=== PATIENT | female | born 1985 | race Caucasian/White ===

== ENCOUNTER → 2017-11-22 | Outpatient (CLI) | payer BC ==
--- NOTE | 2017-11-22 15:01 | MM ---
Reason for exam: clinical finding. History: Took hormonal contraceptives beginning at age 16. Physical Findings: Nurse Summary: 1cm nodule in the left rbeast at 6 o'clock (nurse myranda). [facility] Diagnostic Mammo w CAD MADELEINE Bilateral CC and MLO view(s) were taken. The breast tissue is heterogeneously dense. This may lower the sensitivity of mammography. There are few, tiny, benign appearing round calcifications in the right breast. There is no discrete abnormality. These results were verbally communicated with the patient and result sheet given to the patient on 11/22/17. ASSESSMENT: Incomplete: need additional imaging evaluation, BI-RAD 0 RECOMMENDATION: Ultrasound of the left breast. (palpable by patient)
--- NOTE | 2017-11-22 15:04 | USB ---
Reason for exam: additional evaluation requested from abnormal screening. History: Took hormonal contraceptives beginning at age 16. US Breast LT Left complete breast ultrasound includes all four quadrants, the retroareolar region and axilla. Finding demonstrates a 0.7 x 0.2 x 0.3cm vague, irregular, mixed lesion at 4 o'clock at skin surface and a 0.6 x 0.3 x 0.8cm oval, mixed lesion at 6 o'clock. These results were verbally communicated with the patient and result sheet given to the patient on 11/22/17. ASSESSMENT: Probably benign, BI-RAD 3 RECOMMENDATION: Ultrasound of the left breast in 2-3 months. MTDD
== END | disposition home or self-care (01) ==
LOC: RADMAMWWP 13:39
PROVIDERS: ATTEND Family Medicine
DX: N63.42 Unspecified lump in left breast, subareolar (principal)
CPT/HCPCS: 77066

== ENCOUNTER → 2018-02-15 | Outpatient (CLI) | payer BC ==
--- NOTE | 2018-02-19 11:44 | USB ---
Reason for exam: clinical finding. History: Took hormonal contraceptives beginning at age 16. Physical Findings: Nurse Summary: Left breast palpable at 6 o'clock 0.5 x 0.5 cm , movable, non-tender. US Breast LT Left complete breast ultrasound includes all four quadrants, the retroareolar region and axilla. Finding demonstrates a 0.4 x 0.4 x 0.4 cm oval solid lesion at the skin line. These results were verbally communicated with the patient and result sheet given to the patient on 02/15/18. ASSESSMENT: Probably benign, BI-RAD 3 RECOMMENDATION: Ultrasound of the left breast in 6 months.
== END | disposition home or self-care (01) ==
LOC: RADUSWWP 15:31
PROVIDERS: ATTEND Family Medicine
DX: N63.42 Unspecified lump in left breast, subareolar (principal)

== ENCOUNTER → 2018-09-26 | Outpatient (CLI) | payer BC ==
--- NOTE | 2018-09-26 13:19 | CT ---
EXAMINATION TYPE: CT abdomen wo/w con DATE OF EXAM: 09/26/2018 COMPARISON: CT scan 11/07/2013, outside MRI report of 08/21/2018. HISTORY: Liver Lesion CT DLP: 615.8 mGycm Automated exposure control for dose reduction was used. TECHNIQUE: Helical acquisition of images was performed from the lung bases through the top of iliac crest to include entire abdomen. CONTRAST: Performed with Oral Contrast and without and with IV Contrast, patient injected with 100 mL of Isovue 300. FINDINGS: LUNG BASES: No significant abnormality is appreciated. LIVER/GB: NO calcified gallstones. 1.8 cm lesion of decreased attenuation with enhancement rule out a nd fill-in on delayed images posterior segment right hepatic lobe at its periphery likely reflects a hemangioma . Biliary tree is of normal caliber. PANCREAS: No significant abnormality is seen. SPLEEN: No significant abnormality is seen. ADRENALS: No significant abnormality is seen. KIDNEYS: No significant abnormality is seen. BOWEL: Localized areas of wall thickening involving the right colon most likely related to incomplet e distention or peristalsis.. Duodenal diverticulum noted. LYMPH NODES: No significant abnormality is seen. OSSEOUS STRUCTURES: Chronic deformity lower right rib suggestive of remote trauma. OTHER: Small fat-containing periumbilical hernia. Aorta of normal caliber. No free fluid. IMPRESSION: 1. Stable hepatic hemangioma. 2. Localized areas of wall thickening involving the right colon most likely related to incomplete dis tention rather than mucosal lesion correlate clinically and with direct visualization as clinically w arranted.
== END | disposition home or self-care (01) ==
LOC: RADCTMAIN 10:43
PROVIDERS: ATTEND Family Medicine
DX: D18.03 Hemangioma of intra-abdominal structures (principal); K63.89 Other specified diseases of intestine
CPT/HCPCS: 74170; Q9967

== ENCOUNTER → 2018-10-17 | Outpatient (CLI) | payer BC ==
--- NOTE | 2018-10-17 11:43 | USB ---
Reason for exam: follow-up at short interval from prior study. History: Took hormonal contraceptives beginning at age 16. Physical Findings: Nurse Summary: left breast palpable 5:30, 0.5 x 0.5cm, movable (nurse ts). US Breast LT Left complete breast ultrasound includes all four quadrants, the retroareolar region and axilla. Finding demonstrates a 0.3 x 0.2 x 0.3cm solid vague lesion at skin line 5 o'clock. These results were verbally communicated with the patient and result sheet given to the patient on 10/17/18. ASSESSMENT: Probably benign, BI-RAD 3 RECOMMENDATION: Ultrasound of the left breast in 6 months. Manage patient on a clinical basis.
== END | disposition home or self-care (01) ==
LOC: RADUSWWP 10:22
PROVIDERS: ATTEND Family Medicine
DX: R92.8 Other abnormal and inconclusive findings on diagnostic imaging of breast (principal)

== ENCOUNTER 2019-05-12 06:00 | Inpatient (IN) | payer BC ==
--- NOTE | 2019-05-11 18:38 | P.HPOB ---
History of Present Illness H&P Date: 05/11/19 Chief Complaint: Postdates This is a 33 y.o. female 2, para 1, with an estimated date of confinement of 05/01/2019, estimated gestational age of 41-5/7 weeks, who presents for induction of labor due to post-dates . She admits to good movement and has irregular contractions. has been uncomplicated. labs: GC/Chlamydia/Trich-neg Hepatitis B surface antigen-neg RPR-NR Rubella-immune Blood type-O+ Antibody screen-neg Hemoglobin-12.2 Random glucose-87 Quad-normal US- 2 EIF L. & R. ventricle-resolved 1 hr. GTT-108 GBS-neg OB Hx: . Hx 1 vaginal delivery. 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 Review of Systems Constitutional: Denies chills, Denies fever Eyes: denies blurred vision, denies pain Ears, nose, mouth and throat: Denies headache, Denies sore throat Cardiovascular: Denies chest pain, Denies shortness of breath Respiratory: Denies cough Gastrointestinal: Reports abdominal pain (irreg. ctxs) Genitourinary: Reports pelvic pain, Reports Musculoskeletal: Reports low back pain Integumentary: Denies pruritus, Denies rash Neurological: Denies numbness, Denies weakness Psychiatric: Denies anxiety, Denies depression Past Medical History Past Medical History: GERD/Reflux Additional Past Medical History / Comment(s): History of arrhythmia History of Any Multi-Drug Resistant Organisms: None Reported Past Surgical History: Hernia Repair Additional Past Surgical History / Comment(s): Inguinal hernia repair on the left at age 4 Past Anesthesia/Blood Transfusion Reactions: No Reported Reaction Past Psychological History: No Psychological Hx Reported Smoking Status: Never smoker Past Alcohol Use History: None Reported Past Drug Use History: None Reported - Past Family History Father Family Medical History: Diabetes Mellitus, Hypertension Mother Family Medical History: Hypertension Medications and Allergies Home Medications Medication Instructions Recorded Confirmed Type Pnv,Calcium 72/Iron/Folic Acid 1 each PO 11/22/15 History [ Plus Tablet] Allergies Allergy/AdvReac Type Severity Reaction Status Date / Time No Known Allergies Allergy Verified 11/22/15 09:05 Exam Osteopathic Statement: *. No significant issues noted on an osteopathic structural exam other than those noted in the History and Physical/Consult. HEENT: within normal limits Heart: regular rate and rhythm Lungs: clear to auscultation bilaterally Abdomen: heart tones: 140's by doppler Cervix: 2 cm/60%/-2 Extremities: neg. Main's Assessment and Plan (1) Post-term , 40-42 weeks of gestation Status: Acute Code(s): O48.0 - POST-TERM SNOMED Code(s): 99146518591658 Plan: Admit for induction of labor. Expectant management. Epidural anesthesia if desired.
[2019-05-12] MEDS ORDERED: METHYLERGONOVINE 0.2 MG/ML 1 ML AMP IM PRN (06:24)
[2019-05-12] MEDS ORDERED: LIDOCAINE 0.5% (PF) 5 MG/ML (50 ML SDV) SQ PRN (06:24)
[2019-05-12] MEDS ORDERED: TERBUTALINE 1 MG/ML VIAL SQ PRN (06:24)
[2019-05-12] MEDS ORDERED: OXYTOCIN 10 UNIT/ML 1 ML VIAL IM PRN (06:24)
[2019-05-12] MEDS ORDERED: OXYTOCIN 30 UNITS/500 ML NS 30 UNIT in SALINE 1 500ML.BAG IV SCH (06:24)
[2019-05-12] MEDS ORDERED: LIDOCAINE 1% (10MG/ML) FOR IV START INTRADERMA PRN (06:24)
[2019-05-12] MEDS ORDERED: CARBOPROST TROMETHAMINE 250 MCG/ML 1 ML AMP IM PRN (06:24)
[2019-05-12] MEDS: LACTATED RINGERS 1,000 ML IV SCH ×4 (06:31→14:54)
[2019-05-12 06:44] LABS: Basophils % (A) 0 %; Eosinophils # (A) 0.1 k/uL (0-0.7); Eosinophils % (A) 1 %; HCT 38.2 % (34.0-46.0); HGB 12.6 gm/dL (11.4-16.0); Lymphocytes # (A) 2.3 k/uL (1.0-4.8); Lymphocytes % (A) 23 %; MCV 84.7 fL (80.0-100.0); Mean Platelet Volume 9.5; Monocytes # (A) 0.4 k/uL (0-1.0); Monocytes % (A) 4 %; Neutrophils # (A) 6.8 k/uL (1.3-7.7); Neutrophils % (A) 69 %; Platelet Count 140 k/uL (150-450); RBC 4.51 m/uL (3.80-5.40); RDW 14.3 % (11.5-15.5); WBC 9.8 k/uL (3.8-10.6)
[2019-05-12] MEDS ORDERED: ROPIVACAINE 100 MG, fentaNYL (PF) 200 MCG in SODIUM CHLORIDE 0.9% 76 ML EPIDURAL ONE (10:44)
[2019-05-12] MEDS ORDERED: OXYTOCIN 20 UNITS/1000 ML NS 1,000 ML IV SCH (17:38)
[2019-05-12] MEDS ORDERED: WITCH HAZEL 1 EACH MED..PAD TOPICAL PRN (17:38)
[2019-05-12] MEDS ORDERED: diphenhydrAMINE 50 MG CAP PO PRN (17:38)
[2019-05-12] MEDS ORDERED: LANOLIN CREAM 5 GM TUBE TOPICAL PRN (17:38)
[2019-05-12] MEDS ORDERED: ZOLPIDEM 5 MG TAB PO PRN (17:38)
[2019-05-12] MEDS ORDERED: SIMETHICONE 80 MG CHEWABLE PO PRN (17:38)
[2019-05-12] MEDS ORDERED: BENZOCAINE/MENTHOL SPRAY 1 GM/SPRAY AEROSOL TOPICAL PRN (17:38)
[2019-05-12] MEDS ORDERED: diphenhydrAMINE 50 MG/ML 1 ML VIAL IVP PRN ×2 (17:38)
[2019-05-12] MEDS ORDERED: HYDROCORTISONE 2.5% RECTAL CREAM 30 GM TUBE RECTAL PRN (17:38)
[2019-05-12] MEDS ORDERED: diphenhydrAMINE 25 MG CAP PO PRN (17:38)
--- NOTE | 2019-05-12 17:50 | P.PROBDLV ---
Vaginal Delivery Note - . Vaginal Delivery Note: The patient progressed to complete dilation after oxytocin induction of labor and artificial rupture membranes with clear fluid noted. Once reaching complete, she began pushing. Infant's head came to a crown. With one further push, the infant's head delivered across the perineum in a left occiput anterior lie followed by the anterior shoulder. Nose and mouth were bulb suctioned at the perineum. With one further push, the remainder the easily delivered and was placed on mother's abdomen. Cord was clamped and cut and infant was taken to warmer for evaluation. A viable male infant was noted with scores of 9 at 1 minute and 9 at 5 minutes and infant weight of 8 lbs. 4 oz. Placenta delivered shortly thereafter, intact, with a three-vessel cord. Uterus contracted fairly well after oxytocin was given and uterine massage was carried out. Inspection of the perineum revealed a second-degree perineal laceration. This area was anesthetized with 1% lidocaine and then sutured with 3-0 and 2-0 Vicryl suture in the usual multilayer fashion. Estimated blood loss is approximately 150 mL's. Both mother and are in stable condition.
[2019-05-12] MEDS: IBUPROFEN 600 MG TAB PO PRN (20:01)
[2019-05-12] MEDS: SENNOSIDES-DOCUSATE SODIUM 1 EACH TAB PO SCH (22:04)
[2019-05-13] MEDS: IBUPROFEN 600 MG TAB PO PRN ×3 (01:42→18:21)
[2019-05-13] MEDS: ACETAMINOPHEN TAB 325 MG TAB PO PRN ×3 (04:43→22:16)
[2019-05-13 07:04] LABS: Basophils % (A) 0 %; Eosinophils % (A) 0 %; Lymphocytes # (A) 2.1 k/uL (1.0-4.8); Lymphocytes % (A) 15 %; MCH 28.6 pg (25.0-35.0); MCHC 33.3 g/dL (31.0-37.0); MCV 85.8 fL (80.0-100.0); Monocytes # (A) 0.6 k/uL (0-1.0); Monocytes % (A) 5 %; Neutrophils # (A) 10.5 k/uL (1.3-7.7); Neutrophils % (A) 78 %; Platelet Count 103 k/uL (150-450); RBC 3.84 m/uL (3.80-5.40); RDW 14.3 % (11.5-15.5); WBC 13.5 k/uL (3.8-10.6)
[2019-05-13] MEDS: SENNOSIDES-DOCUSATE SODIUM 1 EACH TAB PO SCH ×2 (08:32→20:28)
--- NOTE | 2019-05-13 08:54 | P.DS ---
Providers Date of admission: 05/12/19 06:08 Expected date of discharge: 05/13/19 Attending physician: Kelley Falk Primary care physician: Stated None - Discharge Diagnosis(es) (1) Post-term , 40-42 weeks of gestation Current Visit: No Status: Acute Hospital Course: This is a 33-year-old female 2 para 1 with an estimated gestational age of 41-5/7 weeks, who presented for induction of labor. She underwent oxytocin induction of labor and delivered vaginally a viable male infant with scores of 9 at 1 minute and 9 at 5 minutes and weight of 8 lbs. 4 oz. on 05/12/2019. Her post course was uncomplicated. Lochia is decreasing. Pain is well-controlled. She is breast-feeding. Vital signs are stable. Abdomen soft with fundus firm and nontender. Extremities show negative Homans. Impression is status post vaginal delivery day #1. Plan is to discharge home today. Routine instructions are given. She is advised follow-up in the office in 6 weeks for check. She will be given a prescription for ibuprofen and a breast pump. She is advised to call the office if she has any further questions or concerns prior to her appointment time. Procedures: Oxytocin induction of labor Spontaneous vaginal delivery of a viable male infant on 05/12/2019 Patient Condition at Discharge: Stable Plan - Discharge Summary New Discharge Prescriptions: New Ibuprofen [Motrin] 600 mg PO Q6HR PRN #60 tab PRN Reason: Mild Pain Or Fever >= 100.5 Continue Pnv,Calcium 72/Iron/Folic Acid [ Plus Tablet] 1 each PO DAILY Discharge Medication List Pnv,Calcium 72/Iron/Folic Acid [ Plus Tablet] 1 each PO DAILY 11/22/15 [History] Ibuprofen [Motrin] 600 mg PO Q6HR PRN #60 tab 05/13/19 [Rx] Follow up Appointment(s)/Referral(s): Kelley Falk DO [Doctor of Osteopathic Medicine] - 6 Weeks Activity/Diet/Wound Care/Special Instructions: Instructions 1. Do not begin any exercise program for 3 weeks. 2. Do not resume sexual relations for 3 weeks or longer if uncomfortable. 3. You may take tub baths or showers at any time. 4. You may use tampons if desired after 3 weeks. 5. Keep the area of episiotomy (stitches) clean and dry. 6. If you are not nursing, wear a good fitting, supportive bra during the day and limit fluid intake for at least 1 week to prevent breast engorgement. 7. Call the office, [phone], within the next week to make appointment for your 6 week checkup if it has not already been made. 8. Report any of the following occurrences to the doctor promptly: a. Heavy, excessive bleeding b. Chills, fever c. Burning or frequency of urination d. Pain or redness and breasts if nursing e. Increasing pain or swelling in episiotomy (stitches). In addition to the above instructions, the following additional should be followed: 1. No heavy lifting or straining (exercising) until after 6 week checkup. 2. Keep abdominal incision clean and dry: You may wear a dressing if more comfortable. 3. Make office appointment for 10 days after going home or as instructed by her doctor. Discharge Disposition: HOME SELF-CARE
[2019-05-14 00:08] VITALS: RESP 16
[2019-05-14] MEDS: IBUPROFEN 600 MG TAB PO PRN ×2 (07:16→16:55)
[2019-05-14] MEDS: SENNOSIDES-DOCUSATE SODIUM 1 EACH TAB PO SCH (07:16)
[2019-05-14 17:11] VITALS: BP 131/65; PULSE 72; TEMP 98.1
== END 2019-05-14 18:35 | disposition home or self-care (01) | DRG 807 ==
LOC: 4FBP 06:08
PROVIDERS: ADMIT Obstetrics & Gynecology; ATTEND Obstetrics & Gynecology
PROC: 0KQM0ZZ Repair Perineum Muscle, Open Approach (ICD-10-PCS; principal; 2019-05-12)
PROC: 10E0XZZ Delivery of Products of Conception, External Approach (ICD-10-PCS; principal; 2019-05-12)
DX: O48.0 Post-term pregnancy (principal); Z37.0 Single live birth; O70.1 Second degree perineal laceration during delivery; Z82.49 Family history of ischemic heart disease and other diseases of the circulatory system; Z83.3 Family history of diabetes mellitus; Z3A.41 41 weeks gestation of pregnancy; K21.9 Gastro-esophageal reflux disease without esophagitis; Z98.890 Other specified postprocedural states
CPT/HCPCS: 85025; 86850; 86900; 86901; 88307

== ENCOUNTER → 2019-07-18 | Outpatient (CLI) | payer BC | END | disposition home or self-care (01) | LOC: LABWHC1 13:14 | PROVIDERS: ATTEND Obstetrics & Gynecology | DX: Z11.59 Encounter for screening for other viral diseases (principal) ==

== ENCOUNTER 2019-07-22 08:02 | Day surgery (SDC) | payer BC ==
[2019-07-21 13:40] VITALS: BMI 28.3
--- NOTE | 2019-07-21 19:03 | P.HPOB ---
History of Present Illness H&P Date: 07/21/19 Chief Complaint: Family planning This is a 33 y.o. female, 2, para 2, who presents for laparoscopic bilateral tubal ligation via fulgaration for family planning. She recently delivered her last child and wishes permanent sterilization. She is currently using progesterone-only control pills. OB Hx: . History of 2 vaginal deliveries. 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 Review of Systems Constitutional: Denies chills, Denies fever Eyes: denies blurred vision, denies pain Ears, nose, mouth and throat: Denies headache, Denies sore throat Cardiovascular: Denies chest pain, Denies shortness of breath Respiratory: Denies cough Gastrointestinal: Denies abdominal pain, Denies diarrhea, Denies nausea, Denies vomiting Menstruation: Reports amenorrhea on BC Musculoskeletal: Denies myalgias Integumentary: Denies pruritus, Denies rash Neurological: Denies numbness, Denies weakness Psychiatric: Denies anxiety, Denies depression Past Medical History Past Medical History: GERD/Reflux Additional Past Medical History / Comment(s): History of arrhythmia History of Any Multi-Drug Resistant Organisms: None Reported Past Surgical History: Hernia Repair Additional Past Surgical History / Comment(s): Inguinal hernia repair on the left at age 4 Past Anesthesia/Blood Transfusion Reactions: No Reported Reaction Past Psychological History: No Psychological Hx Reported Smoking Status: Never smoker Past Alcohol Use History: Occasional Past Drug Use History: None Reported - Past Family History Father Family Medical History: Diabetes Mellitus, Hypertension Mother Family Medical History: Hypertension Medications and Allergies Home Medications Medication Instructions Recorded Confirmed Type Pnv,Calcium 72/Iron/Folic Acid 1 each PO DAILY 11/22/15 07/21/19 History [ Plus Tablet] Ibuprofen [Motrin] 600 mg PO Q6HR PRN #60 tab 05/13/19 07/21/19 Rx Allergies Allergy/AdvReac Type Severity Reaction Status Date / Time shellfish derived [Shellfish] Allergy Severe Swelling Verified 07/22/19 08:22 Exam Osteopathic Statement: *. No significant issues noted on an osteopathic structural exam other than those noted in the History and Physical/Consult. Intake and Output 07/21/19 07/21/19 07/21/19 06:59 14:59 22:59 Other: Weight 70.307 kg HEENT: within normal limits Heart: regular rate and rhythm Lungs: clear to auscultation bilaterally Abdomen: soft, non-tender Pelvic: uterus anteverted, non-tender with no adnexal masses or tenderness noted Extremities: neg. Main's Assessment and Plan (1) Family planning Current Visit: No Status: Acute Code(s): Z30.09 - ENCOUNTER FOR OT GENERAL CNSL AND ADVICE ON CONTRACEPTION SNOMED Code(s): 590405312 Plan: Proceed with laparoscopic bilateral tubal ligation via fulgaration. I have discussed the risks, benefits, and alternative therapies for the above- mentioned procedure and for both sedation/anesthesia as well as necessary blood products administration, if indicated, as they pertain to this patient. The patient has indicated her understanding and acceptance of the risks and procedures discussed.
[~2019-07-22 08:02] MED LIST: DEXAMETHASONE SOD PHOSPHATE 10 MG/ML 1 ML VIAL IV ONE; HYDROmorphone 0.5 MG/0.5 ML SYRINGE IVP PRN; LACTATED RINGERS 1,000 ML IV SCH; LIDOCAINE 1% (10MG/ML) FOR IV START INTRADERMA PRN; MIDAZOLAM 2 MG/2 ML VIAL IV PRN; ONDANSETRON 4 MG/2 ML VIAL IVP ONE; Pre Op ABX Message 1 EACH MISC MISCELLANE ONE
[2019-07-22] MEDS ORDERED: fentaNYL (PF) 50 MCG/ML 2 ML AMP ONE (09:27)
[2019-07-22] MEDS ORDERED: GLYCOPYRROLATE 0.2 MG/ML 2 ML VIAL ONE (09:27)
[2019-07-22] MEDS ORDERED: ROCURONIUM BROMIDE 10 MG/ML 5 ML VIAL IV ONE (09:27)
[2019-07-22] MEDS ORDERED: PROPOFOL 10 MG/ML 20 ML VIAL IV ONE (09:27)
[2019-07-22] MEDS ORDERED: MIDAZOLAM 2 MG/2 ML VIAL ONE (09:27)
[2019-07-22] MEDS ORDERED: NEOSTIGMINE 1 MG/ML 10 ML VIAL ONE (09:27)
[2019-07-22] MEDS ORDERED: KETOROLAC 30 MG/ML 1 ML VIAL ONE (09:27)
[2019-07-22] MEDS ORDERED: LIDOCAINE 1% INJ 10MG/ML (20 ML MDV) ONE (09:27)
[2019-07-22] MEDS ORDERED: HYDROmorphone (PF) 1 MG/ML ONE (09:27)
[2019-07-22] MEDS ORDERED: BUPIVACAINE (PF) 0.25% 30 ML VIAL SQ ONE ×3 (09:28→09:50)
[2019-07-22] MEDS ORDERED: LACTATED RINGERS 1,000 ML IV ONE (10:04)
--- NOTE | 2019-07-22 10:10 | P.OP ---
Date of Procedure: 07/22/19 Preoperative Diagnosis: Family planning Postoperative Diagnosis: Same Procedure(s) Performed: Laparoscopic bilateral tubal ligation via fulguration Anesthesia: VICTOR HUGO Surgeon: Kelley Falk Pathology: none sent Condition: stable Disposition: same day Indications for Procedure: This is a 33 y.o. female, 2, para 2, who presents for laparoscopic bilateral tubal ligation via fulgaration for family planning. She recently delivered her last child and wishes permanent sterilization. She is currently using progesterone-only control pills. Operative Findings: Uterus is small, anteverted, sounded to 8 cm. Normal ovaries and tubes are noted. Description of Procedure: The patient is taken to the operating room where she is placed in the dorsal lithotomy position. She is prepped and draped in the normal sterile fashion. Examination is performed under anesthesia. Uterus is found to be in a anteverted position. No adnexal masses were palpated. Next a bivalve speculum was placed in the patient's vagina. A single-tooth tenaculum was used to grasp the anterior lip of the cervix. The uterus was sounded to 8 cm. The kroner uterine manipulator was then inserted through the cervix and the balloon was inflated. The single-tooth tenaculum is removed speculum was removed gloves were changed and attention was turned to the abdomen. A small stab incision was made with a scalpel in the infraumbilical fold. A towel clip was placed above the umbilicus for retraction. A 5 mm disposable bladeless trocar was then inserted into the peritoneal cavity under direct visualization. Once inside, pneumoperitoneum was achieved with CO2 gas. The insert was removed and the camera was placed. Intraperitoneal placement was confirmed. No bleeding was noted. Next the patient was placed in Trendelenburg position. A small stab incision was made suprapubically and a 5 mm disposable bladeless trocar was inserted into the peritoneal cavity under direct visualization. Once inside pelvic contents were inspected. Next a bipolar Kleppinger instrument was placed through the inferior trocar and the midportion of each tube was brought away from other structures and completely fulgurated on approximate 2-3 cm segment of each tube. Excellent hemostasis was noted. Pictures were taken. Pneumoperitoneum was released after the inferior trocar was removed under direct visualization. The upper trocar was then removed. The skin incisions were then closed with 4-0 Vicryl suture in a subcuticular fashion. Incisions were then injected with quarter percent Marcaine. Approximately 7 mL were used. Next the kroner uterine manipulator was removed. Minimal bleeding was noted. All sponge and needle counts are correct. The patient is then taken to recovery room in stable condition.
[2019-07-22 10:19] VITALS: TEMP 98
[2019-07-22 11:00] VITALS: RESP 18
[2019-07-22 11:55] VITALS: BP 117/62; PULSE 68
== END 2019-07-22 12:26 | disposition home or self-care (01) ==
LOC: OR 08:02
PROVIDERS: ATTEND Obstetrics & Gynecology
DX: Z30.2 Encounter for sterilization (principal); K21.9 Gastro-esophageal reflux disease without esophagitis; F17.200 Nicotine dependence, unspecified, uncomplicated; Z79.3 Long term (current) use of hormonal contraceptives; Z86.79 Personal history of other diseases of the circulatory system; Z98.890 Other specified postprocedural states; Z91.013 Allergy to seafood; Z83.3 Family history of diabetes mellitus; Z82.49 Family history of ischemic heart disease and other diseases of the circulatory system
CPT/HCPCS: 81025; 58670; J2250; J2710; J2405; J2001; J3010; J1885; J1170; J2704

== ENCOUNTER 2024-06-09 15:29 | Observation (INO) | payer BC, OTHER ==
--- NOTE | 2024-06-09 16:13 | ED ---
General Adult HPI - General Stated complaint: ABD Pain/ABN Labs Time Seen by Provider: 06/09/24 15:41 Source: patient, RN notes reviewed - History of Present Illness Initial comments: This is a 38-year-old female presenting to the emergency room with referral from urgent care for complaints of epigastric abdominal pain that has been intermittent over the past 4 to 5 days. States that this pain feels like a cramping sensation has been associated after she has been eating or laying down at night. Endorses associated nausea with no reported emesis. Denies previous surgical abdominal history. Denies diarrhea or constipation. - Related Data Home Medications Medication Instructions Recorded Confirmed No Known Home Medications 06/09/24 06/09/24 Allergies Allergy/AdvReac Type Severity Reaction Status Date / Time shellfish derived [Shellfish] Allergy Severe Swelling Verified 06/09/24 18:47 all over/Rash Review of Systems ROS Statement: Those systems with pertinent positive or pertinent negative responses have been documented in the HPI. ROS Other: All systems not noted in ROS Statement are negative. Past Medical History Past Medical History: GERD/Reflux Additional Past Medical History / Comment(s): History of arrhythmia History of Any Multi-Drug Resistant Organisms: None Reported Past Surgical History: Hernia Repair Additional Past Surgical History / Comment(s): Inguinal hernia repair on the left at age 4 Past Anesthesia/Blood Transfusion Reactions: No Reported Reaction Past Alcohol Use History: None Reported - Past Family History Father Family Medical History: Diabetes Mellitus, Hypertension Mother Family Medical History: Hypertension General Exam - General Exam Comments Initial Comments: Visual Physical Exam Vital signs reviewed General: Well-appearing, nontoxic, no acute distress. Head: Normocephalic, atraumatic Eyes: PERRLA, EOMI ENT: Airway patent Chest: Nonlabored breathing Skin: No visual rash, normal skin tone Neuro: Alert and oriented 3 Musculoskeletal: No gross abnormalities General appearance: alert, in no apparent distress Neck exam: Present: normal inspection. Absent: tenderness, meningismus, lymphadenopathy Respiratory exam: Present: normal lung sounds bilaterally. Absent: respiratory distress, wheezes, rales, rhonchi, stridor Cardiovascular Exam: Present: regular rate, normal rhythm, normal heart sounds. Absent: systolic murmur, diastolic murmur, rubs, gallop, clicks GI/Abdominal exam: Present: soft, tenderness (RUQ/epigastric), normal bowel so unds. Absent: distended, guarding, rebound, rigid Extremities exam: Present: normal inspection, full ROM, normal capillary refill. Absent: tenderness, pedal edema, joint swelling, calf tenderness Back exam: Present: normal inspection. Absent: CVA tenderness (R), CVA tenderness (L) Course Vital Signs 06/09/24 06/09/24 16:13 18:36 Temperature 97.9 F 98.0 F Pulse Rate 98 110 H Respiratory 18 20 Rate Blood Pressure 162/98 168/90 O2 Sat by Pulse 100 100 Oximetry Medical Decision Making - Medical Decision Making Was pt. sent in by a medical professional or institution (, PA, NUCLEAR PHYSICIAN, urgent care, hospital, or shelter...) When possible be specific @ -Patient was advised by urgent care to report to emergency department for further evaluation of epigastric abdominal pain and tachycardia. Did you speak to anyone other than the patient for history (EMS, parent, family, police, friend...)? What history was obtained from this source @ -No Did you review nursing and triage notes (agree or disagree)? Why? @ -I reviewed and agree with nursing and triage notes Were old charts reviewed (outside hosp., previous admission, EMS record, old EKG, old radiological studies, urgent care reports/EKG's, shelter records)? Report findings @ -No old charts were reviewed Differential Diagnosis (chest pain, altered mental status, abdominal pain women, abdominal pain men, vaginal bleeding, weakness, fever, dyspnea, syncope, h eadache, dizziness, GI bleed, back pain, seizure, CVA, palpatations, mental health, musculoskeletal)? @ -Differential Abdominal Pain Women: Appendicitis, Cholecystitis, diverticulosis, ischemic bowel, pancreatitis, hepatitis, UTI, gastroenteritis, AAA, incarcerated hernia, bowel obstruction, constipation, inflammatory bowel, hepatitis, peptic ulcer disease, splenic infarction, perforated viscus, vulvitis, ovarian torsion, PID, kidney stone, placenta abruption, this is not meant to be an all-inclusive list EKG interpreted by me (3pts min.). @ -Completed at 1640 sinus tachycardia with a ventricular rate of 103, AR interval 131, QRS 94, QTc 398. X-rays interpreted by me (1pt min.). @ -None done CT interpreted by me (1pt min.). @ -None done U/S interpreted by me (1pt. min.). @ -Ultrasound of the gallbladder reveals cholelithiasis and biliary sludge without evidence of acute cholecystitis, common bile duct is mildly dilated measuring up to 8 mm consider ERCP What testing was considered but not performed or refused? (CT, X-rays, U/S, labs)? Why? @ -None What meds were considered but not given or refused? Why? @ -None Did you discuss the management of the patient with other professionals (professionals i.e. , PA, NUCLEAR PHYSICIAN, lab, RT, psych nurse, bilingual social worker, patient financial services coordinator, teacher, marine safety officer, catalytic case operator)? Give summary @ -I spoke with on-call general surgeon, Dr. Garcia, who was agreed to admit the patient. However after discussion with the patient she has requested a different surgeon for evaluation. I spoke with Dr. Barrera, general surgeon was agreed with the patient with impending surgery for tomorrow and n.p.o. after midnight. Was smoking cessation discussed for >3mins.? @ -No Was critical care preformed (if so, how long)? @ -No Were there social determinants of health that impacted care today? How? (Homelessness, low income, unemployed, alcoholism, drug addiction, transportation, low edu. Level, literacy, decrease access to med. care, penitentiary, rehab)? @ -No Was there de-escalation of care discussed even if they declined (Discuss DNR or withdrawal of care, Hospice)? DNR status @ -No What co-morbidities impacted this encounter? (DM, HTN, Smoking, COPD, CAD, Cancer, CVA, ARF, Chemo, Hep., AIDS, mental health diagnosis, sleep apnea, morbid obesity)? @ -None Was patient admitted / discharged? Hospital course, mention meds given and route, prescriptions, significant lab abnormalities, going to OR and other pertinent info. @ -Admitted. 38-year-old female presents emergency department complaints of epigastric abdominal pain with referral from urgent care. Patient is mildly hypertensive on arrival with blood pressure 162/98. Pain is reproducible on examination. She is provided with dose of Toradol for pain relief. Laboratory testing reveals leukocytosis of 23.13 with left shift neutrophils of 20.43. CMP is unremarkable. Urinalysis no signs of infection, hCG is negative. Ultrasound imaging of the gallbladder reveals cholelithiasis and biliary sludge with mildly dilated common bile duct. I spoke with on-call general surgeon, Dr. Barrera, who was agreed to meet the patient with general medicine on consult and to initiate IV antibiotics. Case discussed with Dr. Christianson. Undiagnosed new problem with uncertain prognosis? @ -No Drug Therapy requiring intensive monitoring for toxicity (Heparin, Nitro, Insulin, Cardizem)? @ -No Were any procedures done? @ -No Diagnosis/symptom? @ -Cholecystitis Acute, or Chronic, or Acute on Chronic? @ -Acute Uncomplicated (without systemic symptoms) or Complicated (systemic symptoms)? @ -Complicated Side effects of treatment? @ -No Exacerbation, Progression, or Severe Exacerbation? @ -No Poses a threat to life or bodily function? How? (Chest pain, USA, SC, pneumonia, PE, COPD, DKA, ARF, appy, cholecystitis, CVA, Diverticulitis, Homicidal, Suici annalisa, threat to staff... and all critical care pts) @ -Yes, can lead to endorgan system dysfunction - Lab Data Result diagrams: 06/09/24 16:53 06/09/24 16:53 Lab Results 06/09/24 06/09/24 06/09/24 Range/Units 16:49 16:49 16:53 WBC 23.13 H (4.50-10.00) 10*3/uL RBC 5.34 H (4.10-5.20) 10*6/uL Hgb 13.1 (12.0-15.0) g/dL Hct 40.6 (37.2-46.3) % MCV 76.0 L (80.0-97.0) fL MCH 24.5 L (27.0-32.0) pg MCHC 32.3 (32.0-37.0) g/dL Plt Count 225 (140-440) 10*3/uL MPV 10.2 (9.5-12.2) fL Immature Gran % (Auto) 0.4 % Neutrophils % 88.3 % Lymphocytes % 7.0 % Monocytes % 3.8 % Eosinophils % 0.2 % Basophils % 0.3 % Immature Gran # 0.10 H (0.00-0.04) 10*3/uL Neutrophils # 20.43 H (1.80-7.70) 10*3/uL Lymphocytes # 1.62 (0.90-5.00) 10*3/uL Monocytes # 0.88 (0.20-1.00) 10*3/uL Eosinophils # 0.04 (0.04-0.35) 10*3/uL Basophils # 0.06 (0.00-0.10) 10*3/uL Sodium (137-145) mmol/L Potassium (3.5-5.1) mmol/L Chloride (98-107) mmol/L Carbon Dioxide (22-30) mmol/L Anion Gap mmol/L BUN (7-17) mg/dL Creatinine (0.52-1.04) mg/dL Est GFR (CKD-EPI)AfAm (>60 ml/min/1.73 sqM) Est GFR (CKD-EPI)NonAf (>60 ml/min/1.73 sqM) Glucose (74-99) mg/dL Calcium (8.4-10.2) mg/dL Total Bilirubin (0.2-1.3) mg/dL AST (14-36) U/L ALT (4-34) U/L Alkaline Phosphatase (38-126) U/L Total Protein (6.3-8.2) g/dL Albumin (3.5-5.0) g/dL Amylase (30-110) U/L Lipase (23-300) U/L Urine Color Yellow Urine Appearance Cloudy H (Clear) Urine pH 6.0 (5.0-8.0) Ur Specific [place] 1.027 (1.001-1.035) Urine Protein Negative (Negative) Urine Glucose (UA) Negative (Negative) Urine Ketones 1+ H (Negative) Urine Blood Negative (Negative) Urine Nitrite Negative (Negative) Urine Bilirubin Negative (Negative) Urine Urobilinogen <2.0 (<2.0) mg/dL Ur Leukocyte Esterase Negative (Negative) Urine RBC 1 (0-5) /hpf Urine WBC 2 (0-5) /hpf Ur Squamous Epith Cells 15 H (0-4) /hpf Urine Bacteria Rare H (None) /hpf Urine Mucus Few H (None) /hpf Urine HCG, Qual Not Detected (Not Detectd) 06/09/24 Range/Units 16:53 WBC (4.50-10.00) 10*3/uL RBC (4.10-5.20) 10*6/uL Hgb (12.0-15.0) g/dL Hct (37.2-46.3) % MCV (80.0-97.0) fL MCH (27.0-32.0) pg MCHC (32.0-37.0) g/dL Plt Count (140-440) 10*3/uL MPV (9.5-12.2) fL Immature Gran % (Auto) % Neutrophils % % Lymphocytes % % Monocytes % % Eosinophils % % Basophils % % Immature Gran # (0.00-0.04) 10*3/uL Neutrophils # (1.80-7.70) 10*3/uL Lymphocytes # (0.90-5.00) 10*3/uL Monocytes # (0.20-1.00) 10*3/uL Eosinophils # (0.04-0.35) 10*3/uL Basophils # (0.00-0.10) 10*3/uL Sodium 138 (137-145) mmol/L Potassium 3.6 (3.5-5.1) mmol/L Chloride 106 (98-107) mmol/L Carbon Dioxide 22 (22-30) mmol/L Anion Gap 10 mmol/L BUN 12 (7-17) mg/dL Creatinine 0.72 (0.52-1.04) mg/dL Est GFR (CKD-EPI)AfAm >90 (>60 ml/min/1.73 sqM) Est GFR (CKD-EPI)NonAf >90 (>60 ml/min/1.73 sqM) Glucose 129 H (74-99) mg/dL Calcium 9.3 (8.4-10.2) mg/dL Total Bilirubin 0.8 (0.2-1.3) mg/dL AST 113 H (14-36) U/L ALT 54 H (4-34) U/L Alkaline Phosphatase 104 (38-126) U/L Total Protein 7.4 (6.3-8.2) g/dL Albumin 4.5 (3.5-5.0) g/dL Amylase 53 (30-110) U/L Lipase 205 (23-300) U/L Urine Color Urine Appearance (Clear) Urine pH (5.0-8.0) Ur Specific [place] (1.001-1.035) Urine Protein (Negative) Urine Glucose (UA) (Negative) Urine Ketones (Negative) Urine Blood (Negative) Urine Nitrite (Negative) Urine Bilirubin (Negative) Urine Urobilinogen (<2.0) mg/dL Ur Leukocyte Esterase (Negative) Urine RBC (0-5) /hpf Urine WBC (0-5) /hpf Ur Squamous Epith Cells (0-4) /hpf Urine Bacteria (None) /hpf Urine Mucus (None) /hpf Urine HCG, Qual (Not Detectd) Disposition Clinical Impression: Cholecystitis Disposition: ADMITTED IP TO THIS HOSP Condition: Stable Referrals: Yong Fitzpatrick MD [Primary Care Provider] - 1-2 days Decision to Admit Reason: Admit from EC Decision Date: 06/09/24 Decision Time: 18:10
[2024-06-09 17:00] LABS: Basophils # (A) 0.06 10*3/uL (0.00-0.10); Basophils % (A) 0.3 %; Eosinophils # (A) 0.04 10*3/uL (0.04-0.35); Eosinophils % (A) 0.2 %; HCT 40.6 % (37.2-46.3); HGB 13.1 g/dL (12.0-15.0); Lymphocytes # (A) 1.62 10*3/uL (0.90-5.00); MCH 24.5 pg (27.0-32.0); MCHC 32.3 g/dL (32.0-37.0); Mean Platelet Volume 10.2 fL (9.5-12.2); Monocytes # (A) 0.88 10*3/uL (0.20-1.00); Monocytes % (A) 3.8 %; Neutrophils # (A) 20.43 10*3/uL (1.80-7.70); Neutrophils % (A) 88.3 %; Platelet Count 225 10*3/uL (140-440); RBC 5.34 10*6/uL (4.10-5.20); WBC 23.13 10*3/uL (4.50-10.00)
[2024-06-09 17:07] LABS: Appearance,Urine Cloudy (Clear); Bacteria,Urine Rare /hpf; Bilirubin,Urine Negative (Negative); Blood,Urine Negative (Negative); Color,Urine Yellow; Glucose,Urine (UA) Negative (Negative); Ketones,Urine 1+ (Negative); Leukocyte Esterase,Urine Negative (Negative); Mucus,Urine Few /hpf; Nitrite,Urine Negative (Negative); Protein,Urine Negative (Negative); RBC,Urine 1 /hpf (0-5); Specific Gravity,Urine 1.027 (1.001-1.035); Squamous Epithelial Cell,Urine 15 /hpf (0-4); Urobilinogen,Urine <2.0 mg/dL (<2.0); WBC,Urine 2 /hpf (0-5)
[2024-06-09 17:16] LABS: ALT 54 U/L (4-34); AST 113 U/L (14-36); African American GFR (CKD) >90 (>60 ml/min/1.73 sqM); Albumin 4.5 g/dL (3.5-5.0); Alkaline Phosphatase 104 U/L (38-126); Amylase 53 U/L (30-110); Anion Gap 10 mmol/L; Blood Urea Nitrogen 12 mg/dL (7-17); Calcium 9.3 mg/dL (8.4-10.2); Carbon Dioxide 22 mmol/L (22-30); Chloride 106 mmol/L (98-107); Glucose 129 mg/dL (74-99); Lipase 205 U/L (23-300); Non-African American GFR(CKD) >90 (>60 ml/min/1.73 sqM); Potassium 3.6 mmol/L (3.5-5.1); Sodium 138 mmol/L (137-145); Total Bilirubin 0.8 mg/dL (0.2-1.3); Total Protein 7.4 g/dL (6.3-8.2)
--- NOTE | 2024-06-09 17:50 | US ---
EXAMINATION TYPE: US gallbladder DATE OF EXAM: 06/09/2024 COMPARISON: CT abdomen 09/26/2018, 11/07/2013, renal ultrasound 10/27/2013, abdominal ultrasound 01/18/20 12 CLINICAL INDICATION: Female, 38 years old with history of epigastric ab pain worse w/ eating, nausea; patient states epigastric pain and pain after eating TECHNIQUE: Grayscale and color Doppler imaging of the right upper quadrant was performed. FINDINGS: EXAM MEASUREMENTS: Liver Length: 13.5 cm Gallbladder Wall: 0.3 cm CBD: 0.8 cm Right Kidney: 9.1 x 4.5 x 4.4 cm [employer] NOTES:slightly limited due to overlying bowel gas Pancreas: visualized portions appear wnl as best seen Liver: wnl Gallbladder: possible 5mm echogenic foci seen within the gb neck. ? echoes seen within the neck vs a rtifact. wall upper limits of normal Evidence for sonographic Still's sign: no CBD: dilated Right Kidney: wnl The visualized portions of the pancreas are unremarkable. The liver is unremarkable without focal les ion. Cholelithiasis with layering biliary sludge. No wall thickening or surrounding fluid. Negative s onographic Still's sign. The common bile duct is mildly dilated. Right kidney demonstrates no hydron ephrosis, nephrolithiasis, or shadowing calculus. IMPRESSION: 1. Cholelithiasis and biliary sludge without ultrasound evidence for acute cholecystitis. 2. Common bile duct is mildly dilated measuring up to 8 mm. Recommend correlation with biliary labs and consideration for MRCP/ERCP. [facility], , 06/09/2024 5:48 PM
[2024-06-09] MEDS ORDERED: NALOXONE 0.4 MG/ML 1 ML VIAL IV PRN (18:18)
[2024-06-09] MEDS ORDERED: KETOROLAC 15 MG/ML 1 ML VIAL IVP PRN (18:18)
[2024-06-09] MEDS: KETOROLAC 15 MG/ML 1 ML VIAL IVP STA (18:18)
[2024-06-09] MEDS: HYDROmorphone 0.5 MG/0.5 ML SYRINGE IVP PRN (19:19)
[2024-06-09] MEDS: CIPROFLOXACIN/DEXTROSE PMX 400 MG in DEXTROSE/WATER 1 200ML.BAG IVPB ONE (19:23)
[2024-06-09] MEDS: metroNIDAZOLE-NS PMX 500 MG in SALINE 1 100ML.BAG IVPB SCH (22:41)
[2024-06-10] MEDS: metroNIDAZOLE-NS PMX 500 MG in SALINE 1 100ML.BAG IVPB SCH (05:01)
[2024-06-10] MEDS: CIPROFLOXACIN/DEXTROSE PMX 400 MG in DEXTROSE/WATER 1 200ML.BAG IVPB SCH (05:02)
[2024-06-10 10:24] LABS: Basophils # (A) 0.02 X 10*3/uL (0.00-0.10); Basophils % (A) 0.2 %; Eosinophils # (A) 0.05 X 10*3/uL (0.04-0.35); Eosinophils % (A) 0.6 %; HCT 37.2 % (37.2-46.3); HGB 11.7 g/dL (12.0-15.0); Lymphocytes # (A) 1.61 X 10*3/uL (0.90-5.00); Lymphocytes % (A) 18.5 %; MCH 24.1 pg (27.0-32.0); MCHC 31.5 g/dL (32.0-37.0); MCV 76.7 FL (80.0-97.0); Mean Platelet Volume 11.1 FL (9.5-12.2); Monocytes # (A) 0.49 X 10*3/uL (0.20-1.00); Monocytes % (A) 5.6 %; NRBC Per 100 WBC 0 X 10*3/uL (0.00-0.01); Neutrophils # (A) 6.51 X 10*3/uL (1.80-7.70); Neutrophils % (A) 74.9 %; Platelet Count 200 X 10*3/uL (140-440); RBC 4.85 X 10*6/uL (4.10-5.20); RDW 15.1 % (11.5-14.5)
[2024-06-10 10:34] LABS: ALT 437 U/L (8-44); AST 431 U/L (13-35); Albumin 4.1 g/dL (3.8-4.9); Albumin/Globulin Ratio 1.58 Ratio (1.60-3.17); Alkaline Phosphatase 142 U/L (41-126); BUN/Creat Ratio 10.25 Ratio (12.00-20.00); Blood Urea Nitrogen 8.2 mg/dL (9.0-27.0); Calcium 9.1 mg/dL (8.7-10.3); Chloride 105 mmol/L (96-109); Globulin 2.6 g/dL (1.6-3.3); Glucose 90 mg/dL (70-110); Potassium 3.8 mmol/L (3.5-5.5); Sodium 138 mmol/L (135-145); Total Bilirubin 0.4 mg/dL (0.3-1.2); Total Protein 6.7 g/dL (6.2-8.2)
--- NOTE | 2024-06-10 11:38 | P.CONS ---
History of Present Illness - Reason for Consult Consult date: 06/10/24 - History of Present Illness Patient is a 38-year-old female with GERD presenting with acute abdominal pain. States she had said intermittent abdominal pain for the past 4 to 5 days. Describes it as a cramping sensation that has been associated with eating. Admits to to nausea. Denies any fever, chills, chest pain, shortness of breath, vomiting, diarrhea, urinary symptoms. States pain feels better this morning si nce she was admitted but still feels a bit nauseous at times. ED documentation reviewed. Review of systems: Pertinent positives and negatives as discussed in HPI, a complete review of systems was performed and all other systems are negative. Physical examination: Vital signs reviewed General: non toxic, no distress, appears at stated age, normal weight Cardiovascular: S1S2 reg, no murmur, positive dorsalis pedis pulse bilateral, no edema Lungs: CTA bilateral, no rhonchi, no rales, no accessory muscle use Abdominal: soft, right upper quadrant tenderness to palpation, no guarding Ext: muscle strength 5 out of 5 in all 4 extremities grossly, no gross muscle atrophy Neuro: CN II-XI grossly intact, no gross focal neuro deficits Psych: Alert, oriented to person, place, and time Assessment/Plan: Patient is a 38-year-old female with GERD presenting with acute abdominal pain. #. Sepsis 2/2 Acute cholecystitis #. Leukocytosis with neutrophilic predominance, left shift #. Transamnitis likely 2/2 acute cholecystitis Gallbladder ultrasound reviewed as above blood cultures not obtained by ED prior to antibiotics CBC and CMP pending, will review Flagyl 500 mg IVPB every 8 hours Ciprofloxacin 400 mg IVPB every 12 hours LR at 130 cc an hour NPO after midnight Scheduled for cholecystectomy Pain management and DVT prophylaxis deferred to primary surgery team CODE STATUS: Full code Patient is medically optimized for surgery. Tano Beasley MD PGY-1 IM Thank you for allowing us to participate in the care of this pleasant patient. Do not hesitate to contact us with questions. Someone can be reached from the [facility]– [place]Note 2[place] hospitalist group all hours of the day at [phone] or via perfect serve. I have seen and evaluated the patient today. Discussed with the resident and agree with the residents finding and plan as documented in the resident's note. Changes highlighted in blue font. Past Medical History Past Medical History: GERD/Reflux Additional Past Medical History / Comment(s): History of arrhythmia History of Any Multi-Drug Resistant Organisms: None Reported Past Surgical History: Hernia Repair Additional Past Surgical History / Comment(s): Inguinal hernia repair on the left at age 4 Past Anesthesia/Blood Transfusion Reactions: No Reported Reaction Past Psychological History: No Psychological Hx Reported Smoking Status: Never smoker Past Alcohol Use History: None Reported Past Drug Use History: None Reported - Past Family History Father Family Medical History: Diabetes Mellitus, Hypertension Mother Family Medical History: Hypertension Medications and Allergies Home Medications Medication Instructions Recorded Confirmed Type No Known Home Medications 06/09/24 06/09/24 History Allergies Allergy/AdvReac Type Severity Reaction Status Date / Time shellfish derived [Shellfish] Allergy Severe Swelling Verified 06/09/24 18:47 all over/Rash Physical Exam Vitals: Vital Signs Temp Pulse Pulse Resp BP BP Pulse Ox 06/10/24 01:49 98.4 F 73 17 124/79 99 06/10/24 00:57 98.2 F 88 16 126/82 98 06/09/24 18:36 98.0 F 110 H 20 168/90 100 06/09/24 16:13 97.9 F 98 18 162/98 100 Intake and Output 06/09/24 06/10/24 06/10/24 22:59 06:59 14:59 Other: # Voids 1 Weight 68.039 kg 68.039 kg Results CBC & Chem 7: 06/10/24 07:09 06/10/24 07:09 Labs: Abnormal Lab Results - Last 24 Hours (Table) 06/09/24 06/09/24 06/09/24 Range/Units 16:49 16:53 16:53 WBC 23.13 H (4.50-10.00) 10*3/uL RBC 5.34 H (4.10-5.20) 10*6/uL MCV 76.0 L (80.0-97.0) fL MCH 24.5 L (27.0-32.0) pg Immature Gran # 0.10 H (0.00-0.04) 10*3/uL Neutrophils # 20.43 H (1.80-7.70) 10*3/uL Glucose 129 H (74-99) mg/dL AST 113 H (14-36) U/L ALT 54 H (4-34) U/L Urine Appearance Cloudy H (Clear) Urine Ketones 1+ H (Negative) Ur Squamous Epith Cells 15 H (0-4) /hpf Urine Bacteria Rare H (None) /hpf Urine Mucus Few H (None) /hpf
[2024-06-10] MEDS: LACTATED RINGERS 1,000 ML IV SCH (13:51)
[2024-06-10] MEDS: ONDANSETRON 4 MG/2 ML VIAL IVP PRN (14:16)
[2024-06-10] MEDS: IV FLUID CONTINUATION 1,000 ML IV ONE (14:23)
[2024-06-10] MEDS ORDERED: KETOROLAC 15 MG/ML 1 ML VIAL ONE (15:10)
[2024-06-10] MEDS ORDERED: PHENYLEPHRINE-0.9% NACL SYG 1,000 MCG/10 ML SYRINGE ONE (15:10)
[2024-06-10] MEDS ORDERED: SUCCINYLCHOLINE CHLORIDE 200 MG/10 ML VIAL IV ONE (15:10)
[2024-06-10] MEDS ORDERED: LIDOCAINE 1% INJ 10MG/ML (20 ML MDV) ONE (15:10)
[2024-06-10] MEDS ORDERED: HEPARIN SODIUM,PORCINE 5,000 UNIT/ML 1 ML VIAL ONE (15:10)
[2024-06-10] MEDS ORDERED: GLYCOPYRROLATE 0.2 MG/ML 2 ML VIAL ONE (15:10)
[2024-06-10] MEDS ORDERED: HYDROmorphone (PF) 1 MG/ML ONE (15:10)
[2024-06-10] MEDS ORDERED: NEOSTIGMINE 1 MG/ML 10 ML VIAL ONE (15:10)
[2024-06-10] MEDS ORDERED: PROPOFOL 10 MG/ML 20 ML VIAL IV ONE (15:10)
[2024-06-10] MEDS ORDERED: fentaNYL (PF) 50 MCG/ML 2 ML AMP ONE (15:10)
[2024-06-10] MEDS ORDERED: ROCURONIUM 10 MG/ML (5 ML VIAL) IV ONE (15:10)
[2024-06-10] MEDS ORDERED: ROPIVACAINE 1,100 MG, SODIUM CHLORIDE 0.9% 500 ML 330 ML, EMPTY PAIN BALL 1 EACH MISCELLANE PRN (15:25)
[2024-06-10] MEDS: LIDOCAINE 1%-EPI 1:100,000 20 ML VIAL SQ ONE ×2 (15:34→16:35)
[2024-06-10] MEDS: LACTATED RINGERS 1,000 ML IV ONE (15:39)
[2024-06-10] MEDS: INDOCYANINE GREEN 25 MG VIAL IV STA (19:02)
[2024-06-11 00:46] VITALS: PULSE 83
[2024-06-11 07:17] LABS: Basophils # (A) 0.02 10*3/uL (0.00-0.10); Basophils % (A) 0.3 %; Eosinophils # (A) 0.03 10*3/uL (0.04-0.35); Eosinophils % (A) 0.4 %; HGB 10.7 g/dL (12.0-15.0); Lymphocytes # (A) 2.47 10*3/uL (0.90-5.00); Lymphocytes % (A) 32.1 %; MCH 24.7 pg (27.0-32.0); MCHC 31.5 g/dL (32.0-37.0); MCV 78.3 fL (80.0-97.0); Mean Platelet Volume 10.7 fL (9.5-12.2); Monocytes % (A) 6.5 %; Neutrophils # (A) 4.66 10*3/uL (1.80-7.70); Neutrophils % (A) 60.4 %; Platelet Count 174 10*3/uL (140-440); RBC 4.34 10*6/uL (4.10-5.20); RDW 15.4 % (11.5-14.5)
[2024-06-11 07:29] LABS: Sodium 134 mmol/L (137-145)
[2024-06-11 07:30] LABS: African American GFR (CKD) >90 (>60 ml/min/1.73 sqM); Anion Gap 7 mmol/L; Blood Urea Nitrogen 7 mg/dL (7-17); Calcium 8.3 mg/dL (8.4-10.2); Carbon Dioxide 21 mmol/L (22-30); Chloride 106 mmol/L (98-107); Glucose 85 mg/dL (74-99); Magnesium 1.8 mg/dL (1.6-2.3); Non-African American GFR(CKD) >90 (>60 ml/min/1.73 sqM); Potassium 3.6 mmol/L (3.5-5.1)
[2024-06-11 08:18] VITALS: BP 116/74; RESP 16; TEMP 97.9
[2024-06-11 08:50] LABS: ALT 267 U/L (4-34); AST 130 U/L (14-36); Albumin 3.3 g/dL (3.5-5.0); Alkaline Phosphatase 105 U/L (38-126); Bilirubin, Delta 0.2 mg/dL (0.0-0.2); Bilirubin,Unconjugated 0.2 mg/dL (0.0-1.1); Total Bilirubin 0.4 mg/dL (0.2-1.3); Total Protein 5.8 g/dL (6.3-8.2)
--- NOTE | 2024-06-11 10:15 | P.PN ---
Subjective Progress Note Date: 06/11/24 Patient seen and evaluated. No acute events overnight. No current complaints. Review of systems: Pertinent positives and negatives as discussed in HPI, a complete review of systems was performed and all other systems are negative. Physical examination: Vital signs reviewed General: non toxic, no distress, appears at stated age, normal weight Cardiovascular: S1S2 reg, no murmur, positive dorsalis pedis pulse bilateral, no edema Lungs: CTA bilateral, no rhonchi, no rales, no accessory muscle use Abdominal: soft, mildly tender to palpation, no guarding Ext: muscle strength 5 out of 5 in all 4 extremities grossly, no gross muscle atrophy Neuro: CN II-XI grossly intact, no gross focal neuro deficits Psych: Alert, oriented to person, place, and time Assessment/Plan: Patient is a 38-year-old female with GERD presenting with acute abdominal pain. POD 1 #. Acute blood loss anemia #. Microcytic anemia Hgb 11.7, MCV 8876.7 Likely outcome of recent surgery No active bleeding advised patient to follow up outpatient regarding microcytic anemia #. Sepsis 2/2 Acute cholecystitis, resolved s/p cholecystectomy #. Leukocytosis with neutrophilic predominance, left shift, resolved #. Transamnitis likely 2/2 acute cholecystitis, improving S/p cholecystectomy POD 1 blood cultures not obtained by ED prior to antibiotics Pain management, antibiotics and DVT prophylaxis deferred to primary surgery team CODE STATUS: Full code Patient is medically optimized for discharge. Tano Beasley MD PGY-1 IM I have seen and evaluated the patient today. Discussed with the resident and agree with the residents finding and plan as documented in the resident's note. Changes highlighted in blue font. Objective - Vital Signs Vital signs: Vital Signs Temp 98.4 F 06/11/24 00:20 Pulse 83 06/11/24 00:20 Resp 17 06/11/24 00:20 BP 119/77 06/11/24 00:20 Pulse Ox 97 06/11/24 00:20 FiO2 Intake & Output 06/10/24 06/10/24 06/11/24 06:59 18:59 06:59 Intake Total 1500 Output Total 10 Balance 1490 Weight 68.039 kg Intake: IV 1400 Intake, IV Titration 100 Amount metroNIDAZOLE-NS PMX 500 100 mg In Saline 1 100ml.bag @ 100 mls/hr IVPB Q8H KRUNAL Rx#:[id number] Output: Estimated Blood Loss 10 Other: # Voids 1 3 3 - Labs CBC & Chem 7: 06/11/24 06:58 06/11/24 06:58 Labs: Abnormal Lab Results - Last 24 Hours (Table) 06/10/24 06/10/24 Range/Units 07:09 07:09 Hgb 11.7 L (12.0-15.0) g/dL MCV 76.7 L (80.0-97.0) FL MCH 24.1 L (27.0-32.0) pg MCHC 31.5 L (32.0-37.0) g/dL RDW 15.1 H (11.5-14.5) % Carbon Dioxide 21.0 L (21.6-31.8) mmol/L BUN 8.2 L (9.0-27.0) mg/dL BUN/Creatinine Ratio 10.25 L (12.00-20.00) Ratio AST 431 H (13-35) U/L ALT 437 H (8-44) U/L Alkaline Phosphatase 142 H (41-126) U/L Albumin/Globulin Ratio 1.58 L (1.60-3.17) Ratio
--- NOTE | 2024-06-11 10:24 | P.DS ---
Providers Date of admission: 06/09/24 18:32 Expected date of discharge: 06/11/24 Attending physician: Radha Barrera DO Consults: 06/09/24 18:33 Consult Physician Routine Consulting Provider: Sudeep Price Consult Reason/Comments: medical management Do you want consulting provider notified?: Yes, Notify in am Primary care physician: Joey Fitzpatrick Hospital Course: Discharge diagnosis 1. Acute cholecystitis Hospital course This is a 38-year-old female presented with right upper quadrant abdominal pain. Her ultrasound reported cholelithiasis with biliary sludge. She was diagnosed with acute cholecystitis. Patient is status post robotic assisted laparoscopic cholecystectomy. Patient's pain is controlled. She is tolerating diet. She has been up and ambulating. She is afebrile. She is stable for discharge. Please refer to chart for any further details. Physician Cheese Specialist note has been reviewed by physician. Signing provider agrees with the documented findings, assessment, and plan of care. Patient Condition at Discharge: Stable Plan - Discharge Summary Discharge Rx Participant: Yes New Discharge Prescriptions: New HYDROcodone/APAP 5-325MG [[place] 5-325] 1 tab PO Q6HR PRN 3 Days #12 tab PRN Reason: Pain Ibuprofen [Motrin] 600 mg PO Q8HR PRN #30 tab PRN Reason: Pain Discharge Medication List HYDROcodone/APAP 5-325MG [[place] 5-325] 1 tab PO Q6HR PRN 3 Days #12 tab 06/11/24 [Rx] Ibuprofen [Motrin] 600 mg PO Q8HR PRN #30 tab 06/11/24 [Rx] Follow up Appointment(s)/Referral(s): Yong Fitzpatrick MD [Primary Care Provider] - 1-2 days Gerhard Hdz DO [Doctor of Osteopathic Medicine] - 1 Week Patient Instructions/Handouts: *Surgery [facility] - Laparoscopic Cholecystectomy Discharge Instructions Activity/Diet/Wound Care/Special Instructions: Please see PCP for further evalulation of mild anemia, may need iron levels checked. No driving while taking [place] No lifting over 10 pounds You may shower. No soaking or tub baths for 2 weeks Very light activity until you are reevaluated at your follow up appointment with your surgeon Low-fat diet Discharge Disposition: HOME SELF-CARE
[2024-06-11] MEDS: HYDROcodone/APAP 5-325MG 1 EACH TAB PO PRN (10:54)
== END 2024-06-11 11:11 | disposition home or self-care (01) ==
LOC: EC 15:29 → 6NMEDSUR 18:32 → 1SOBS 23:07
PROVIDERS: ADMIT Surgery; ATTEND Surgery
DX: K80.12 Calculus of gallbladder with acute and chronic cholecystitis without obstruction (principal); A41.9 Sepsis, unspecified organism; D62 Acute posthemorrhagic anemia; D50.9 Iron deficiency anemia, unspecified; K21.9 Gastro-esophageal reflux disease without esophagitis; R74.01 Elevation of levels of liver transaminase levels; Z91.013 Allergy to seafood
CPT/HCPCS: 47562; S2900; 36415; 76705; 80048; 80053; 80076; 81001; 81025; 82150; 83690; 83735; 85025; 88304; 93005; 96374; 96375; 99285